=== PATIENT | male | born 1995 | race Caucasian/White ===

== ENCOUNTER 2020-07-08 15:08 | Emergency (ER) | payer OTHER ==
[~2020-07-08] VITALS: Ht 177.8 cm; Wt 98.5 kg
--- NOTE | 2020-07-08 15:49 | NUR ---
PT WITH C/O CHEST PALPITATIONS FOR APPROX 3 MONTHS, PT HAS HAD CARDIAC WORKUP WITH ON AIR DIRECTOR AT [facility] WITH NO FINDINGS. PT STATES HE JUST WANTS ANSWERS AND NO ONE HAS DONE ANYTHING FOR HIM. PT TO CARD MONITOR, BP, CONT PULSE OX. AWIAITNG NATROABBEYDER WSATIAL
[2020-07-08 17:01] VITALS: BP 132/57
--- NOTE | 2020-07-08 17:04 | NUR ---
ERMD IN TO EVAL PT
== END 2020-07-08 17:47 | disposition home or self-care (01) ==
LOC: ED 15:28
DX: R00.2 Palpitations (principal); F41.1 Generalized anxiety disorder
CPT/HCPCS: 93005; 99283

== ENCOUNTER 2020-09-05 21:58 | Emergency (ER) | payer OTHER ==
[~2020-09-05] VITALS: Ht 177.8 cm; Wt 100.7 kg
--- NOTE | 2020-09-05 23:43 | NUR ---
Pt comes in with complaints of low back pain that has become progressivly worse and states that when changing positions (from sitting to standing) his heart begins to race and his pain level at that time is a 10/10. is with him at bedside
[2020-09-06 00:22] VITALS: BP 128/78
== END 2020-09-06 00:24 | disposition home or self-care (01) ==
LOC: ED 23:01
DX: M54.16 Radiculopathy, lumbar region (principal)
CPT/HCPCS: 72110; 99283

== ENCOUNTER 2020-09-06 14:46 | Emergency (ER) | payer OTHER ==
[~2020-09-06] VITALS: Ht 182.9 cm; Wt 99.4 kg
[2020-09-06 15:06] VITALS: BP 138/86
== END 2020-09-06 16:51 | disposition home or self-care (01) ==
LOC: ED 15:00
DX: F41.1 Generalized anxiety disorder (principal); Z76.0 Encounter for issue of repeat prescription
CPT/HCPCS: 99283

== ENCOUNTER 2020-09-17 23:25 | Emergency (ER) | payer SELFPAY ==
[~2020-09-17] VITALS: Ht 182.9 cm; Wt 101.0 kg
[2020-09-17 23:38] VITALS: BP 145/82
--- NOTE | 2020-09-18 00:06 | NUR ---
OUTSIDE PLANT ENGINEER: PT WALKED BACK FROM LOBBY TO ROOM AT THIS TIME. STEADY UPON AMBULATION. NO ACUTE DISTRESS NOTED AT THIS TIME.
--- NOTE | 2020-09-18 00:26 | NUR ---
PT D/C WITH D/C SUMMARY AND SCRIPT. ALL QUESTIONS ANSWERED. CONTROLLED SUBSTANCE SHEET SIGNED BY PT AND PLACED WITH PT CHART. PT EDUCATED ON USE AND VERBALIZES UNDERSTANDING. PT AMBULATORY WITH A STEADY GAIT FOR D/C HOME WITH SPOUSE AND PT DENIES ANY OTHER NEEDS PERTAINING TO THIS VISIT.
== END 2020-09-18 00:35 | disposition home or self-care (01) ==
LOC: ED 09-18 00:14
DX: F41.1 Generalized anxiety disorder (principal); R00.2 Palpitations; Z76.0 Encounter for issue of repeat prescription
CPT/HCPCS: 99281

== ENCOUNTER 2021-02-05 18:27 | Emergency (ER) | payer SELFPAY ==
[~2021-02-05] VITALS: Ht 182.9 cm; Wt 91.0 kg
--- NOTE | 2021-02-05 18:51 | NUR ---
SKID WRAPPER: PT TO ROOM FROM [facility].
[2021-02-05 19:22] VITALS: BP 131/86
[2021-02-05] MEDS ORDERED: OMEP20TA62 PO (19:22)
== END 2021-02-05 20:03 | disposition home or self-care (01) ==
LOC: ED 19:58
DX: K20.90 Esophagitis, unspecified without bleeding (principal); G89.29 Other chronic pain; R10.13 Epigastric pain; R07.89 Other chest pain
CPT/HCPCS: 99283

== ENCOUNTER 2021-03-18 13:42 | Emergency (ER) | payer BC, OTHER ==
[~2021-03-18] VITALS: Ht 180.3 cm; Wt 99.0 kg
[~2021-03-18 13:42] MED LIST: OMEP20TA62 PO
--- NOTE | 2021-03-18 15:41 | NUR ---
BREAK RN: PT TO ROOM FROM LOBBY, GAIT STEADY.
--- NOTE | 2021-03-18 15:44 | NUR ---
CONTACT WITH PT, 25 YR OLD MALE HERE WITH C/O "I WAS AT WORK, GRABBING A PACKAGE FROM THE TOP SHELF, MY CHEST WAS ALREADY HURTING WHEN I FLEXED, I SNEEZED AND MY CHEST HURT. THEN I WENT TO GRAB THE BOX AND HAD A SHARP PAIN IN MY STERNUM. I BENT OVER AND FELT THE SAME JOLT IN MY CHEST. FELT A SHARP PAIN IN UNDER MY LEFT NIPPLE" STARTED THIS AM.
--- NOTE | 2021-03-18 15:50 | NUR ---
ESTER BARRERA AT BEDSIDE TO EVAL PT
[2021-03-18] MEDS ORDERED: KETOROLAC 30 MG/1 ML IM ONE (16:00)
--- NOTE | 2021-03-18 16:04 | NUR ---
LAB AT BEDSIDE TO ANTONI SORTO. REPORT TO HARINI GARRETT.
--- NOTE | 2021-03-18 16:09 | NUR ---
REPORT FROM ALPESH LARSON RN. PATIENT IN BED GETTING EKG, HAS CHEST PAIN OFF AND ON FOR A FEW MONTHS.
[2021-03-18] MEDS ORDERED: KETOROLAC 30 MG/1 ML ONE (16:21)
[2021-03-18 16:24] LABS: BASOPHILS % (AUTO) 0 % (0-1); EOSINOPHILS % (AUTO) 1 % (1-7); LYMPHOCYTES % (AUTO) 32 % (22-44); MD NO; MEAN PLATELET VOLUME 8.8 fL (7.4-10.4); MONOCYTES % (AUTO) 7 % (2-9); NEUTROPHILS % (AUTO) 61 % (42-75); PLATELET COUNT 251 x10^3/uL (130-400); RED BLOOD COUNT 5.49 x10^6/uL (4.38-5.82); RED CELL DISTRIBUTION WIDTH 13.1 % (9.4-14.8)
[2021-03-18 16:25] LABS: ALANINE AMINOTRANSFERASE 63 U/L (12-78); ALBUMIN 4.1 g/dL (3.4-5.0); ANION GAP 4 mmol/L (5-15); CALCIUM 9.1 mg/dL (8.5-10.1); CHLORIDE 104 mmol/L (98-107); CREATININE 0.93 mg/dL (0.7-1.3)
[2021-03-18 16:30] LABS: ALKALINE PHOSPHATASE 131 U/L (45-117); BILIRUBIN,TOTAL 0.3 mg/dL (0.2-1.0); TOTAL PROTEIN 8.8 g/dL (6.4-8.2); TROPONIN I < 0.015 ng/mL (0.000-0.045)
[2021-03-18 17:31] VITALS: BP 132/78
--- NOTE | 2021-03-18 17:32 | NUR ---
DISCHARGE REVIEWED, SHOWS UNDERSTANDING
== END 2021-03-18 17:52 | disposition home or self-care (01) ==
LOC: ED 14:39
DX: R07.89 Other chest pain (principal)
CPT/HCPCS: 36415; 71046; 80053; 83690; 84484; 85025; 93005; 96372; 99285; J1885

== ENCOUNTER 2021-07-17 18:37 | Emergency (ER) | payer BC, OTHER ==
[~2021-07-17] VITALS: Ht 185.4 cm; Wt 94.1 kg
[2021-07-17] MEDS ORDERED: ACETAMINOPHEN 500 MG TABLET PO ONE (19:00)
[2021-07-17] MEDS ORDERED: SODIUM CHLORIDE FLUSH 10ML SYR IVF ONE (19:00)
[2021-07-17] MEDS ORDERED: SODIUM CHLORIDE 0.9% 1,000ML IVBOLUS ONE ×2 (19:00→21:00)
[2021-07-17] MEDS ORDERED: OMNIPAQUE 350 MG/ML, 100ML BOTTLE ONE (19:20)
[2021-07-17 19:27] LABS: BASOPHILS % (AUTO) 0 % (0-1); EOSINOPHILS % (AUTO) 0 % (1-7); LYMPHOCYTES % (AUTO) 5 % (22-44); MEAN CORPUSCULAR HEMOGLOBIN 29.8 pg (27.5-34.5); MEAN CORPUSCULAR HGB CONC 34.9 g/dL (33.2-36.2); MEAN PLATELET VOLUME 8.9 fL (7.4-10.4); MONOCYTES % (AUTO) 12 % (2-9); NEUTROPHILS % (AUTO) 83 % (42-75); PLATELET COUNT 240 x10^3/uL (130-400); RED BLOOD COUNT 5.61 x10^6/uL (4.38-5.82); RED CELL DISTRIBUTION WIDTH 13.2 % (9.4-14.8)
[2021-07-17 19:37] LABS: ALBUMIN 4.6 g/dL (3.4-5.0); ANION GAP 9 mmol/L (5-15); CALCIUM 9.2 mg/dL (8.5-10.1); CHLORIDE 102 mmol/L (98-107); CREATININE 1.12 mg/dL (0.7-1.3)
[2021-07-17] MEDS ORDERED: ACETAMINOPHEN 500 MG TABLET ONE (19:37)
--- NOTE | 2021-07-17 19:45 | NUR ---
PATIENT TO CT AT THIS TIME.
[2021-07-17] MEDS ORDERED: PIPERACILLIN/TAZO 3.375 GM in DEXTROSE 5% 50 ML IVPB ONE (21:00)
[2021-07-17] MEDS ORDERED: IBUPROFEN 800 MG TABLET ONE (21:55)
[2021-07-17] MEDS ORDERED: IBUPROFEN 200 MG TABLET PO ONE (22:00)
[2021-07-17 22:15] VITALS: BP 130/79
== END 2021-07-18 01:14 | disposition home or self-care (01) ==
LOC: ED 19:00
DX: A41.9 Sepsis, unspecified organism (principal); J32.0 Chronic maxillary sinusitis; B34.9 Viral infection, unspecified; L04.0 Acute lymphadenitis of face, head and neck; R51.9 Headache, unspecified; M54.2 Cervicalgia; R07.89 Other chest pain
CPT/HCPCS: 36415; 70450; 70491; 71045; 80048; 82040; 83605; 84145; 85025; 86308; 87040; 93005; 96361; 96365; 99285; J2543; J7030; Q9967